=== PATIENT | female | born 1950 | race Caucasian/White ===

== ENCOUNTER → 2018-03-13 | Outpatient (CLI) | payer MEDICARE ==
--- NOTE | 2018-03-13 11:41 | XR ---
EXAMINATION TYPE: XR sinus DATE OF EXAM: 03/13/2018 CLINICAL HISTORY: Facial pain , headache. TECHNIQUE: Wayne, Castañeda, and lateral image of the skull are obtained. COMPARISON: None. FINDINGS: There is mucosal thickening involving the maxillary sinuses bilaterally. Mild mucosal thick ening involving the frontal sinus and ethmoid sinuses. No definite evidence of air-fluid level. Nasal septal deviation noted. Osseous structures intact. IMPRESSION: 1. Findings are compatible with the chronic sinusitis with most marked findings involving the maxilla ry sinuses.
--- NOTE | 2018-03-13 11:45 | XR ---
EXAMINATION TYPE: XR chest 2V DATE OF EXAM: 03/13/2018 COMPARISON: NONE TECHNIQUE: PA and lateral views submitted. HISTORY: Shortness of breath FINDINGS: The lungs are clear and there is no pneumothorax, pleural effusion, or focal pneumonia. Mild degene rative disc disease noted. IMPRESSION: 1. No acute process.
== END | disposition home or self-care (01) ==
LOC: RADXRMAIN 10:18
PROVIDERS: ATTEND Family Medicine
DX: J32.0 Chronic maxillary sinusitis (principal); R06.02 Shortness of breath
CPT/HCPCS: 70220; 71046

== ENCOUNTER → 2018-03-28 | Outpatient (CLI) | payer MEDICARE ==
--- NOTE | 2018-03-28 15:35 | CT ---
EXAMINATION TYPE: CT sinus wo con DATE OF EXAM: 03/28/2018 COMPARISON: None HISTORY: Chronic sinusitis CT DLP: 617 mGycm CONTRAST: 0 mL of Isovue 300 The paranasal sinuses are examined in the axial plane at 2 mm thick sections. Reconstructed images i n the coronal plane were obtained. There is dental amalgam scatter artifact The maxillary sinuses are clear. The ethmoid air cells are clear. The sphenoid sinuses are clear. The frontal sinuses are clear. The septum is evaluated. There is septal deviation to the left. The ostiomeatal units are patent. The suprasellar cistern appears somewhat prominent. There may be some enlargement of the sella. Recom mend pituitary MRI for additional evaluation. IMPRESSIONS: 1. Normal paranasal sinuses 2. Left septal deviation. 3. Prominent sella. Recommend pituitary MRI for evaluation.
== END | disposition home or self-care (01) ==
LOC: RADCTMAIN 09:14
PROVIDERS: ATTEND Otolaryngology
DX: J34.2 Deviated nasal septum (principal)
CPT/HCPCS: 70486

== ENCOUNTER → 2018-04-16 | Outpatient (CLI) | payer MEDICARE | LOC: LABWHC1 13:36 | PROVIDERS: ATTEND Otolaryngology | DX: Z01.818 Encounter for other preprocedural examination (principal); R94.8 Abnormal results of function studies of other organs and systems | CPT/HCPCS: 36415; 82565 ==

== ENCOUNTER → 2018-04-18 | Outpatient (CLI) | payer MEDICARE ==
--- NOTE | 2018-04-18 16:12 | MR ---
EXAMINATION TYPE: MR pituitary wo/w con DATE OF EXAM: 04/18/2018 1:52 PM COMPARISON: NONE HISTORY: abnormal CT scan CONTRAST: Patient received 6 mL intravenous Gadavist gadolinium contrast. Multiplanar MultiSpin echo imaging of the pituitary fossa was performed. Unenhanced followed by cont rast enhanced images are submitted. The unenhanced portion of the study fails to demonstrate evidence for hyperintense pituitary lesion. There is a partially empty sella noted with CSF content seen within the sella turcica. There is flat tening of the pituitary gland which measures 1.2 cm in length by 3 mm in craniocaudal dimension. Foll owing contrast administration there is no evidence for filling defect to suggest microadenoma. Pitui tary stalk is midline. Suprasellar cistern is unremarkable without evidence for mass. Optic chiasm has a normal appearance. Cavernous sinus including the carotid vessels appear to be within normal li mits. IMPRESSION: 1. No evidence for pituitary micro or macroadenoma. Partially empty sella noted.
== END | disposition home or self-care (01) ==
LOC: RADMRIMAIN 12:38
PROVIDERS: ATTEND Otolaryngology
DX: R93.8 Abnormal findings on diagnostic imaging of other specified body structures (principal)
CPT/HCPCS: 70553

== ENCOUNTER → 2019-02-05 | Outpatient (CLI) | payer MEDICARE ==
[2019-02-05 18:06] LABS: Gliadin AB IgA, Unit <0.2 U/mL
[2019-02-06 12:00] LABS: Anti-Endomysial IgA Antibody <1:10 Titer (<1:10)
== END | disposition home or self-care (01) ==
LOC: LABWHC1 09:19
PROVIDERS: ATTEND Family Medicine
DX: R42 Dizziness and giddiness (principal); R19.7 Diarrhea, unspecified
CPT/HCPCS: 36415; 83516; 86255

== ENCOUNTER → 2019-02-23 | Outpatient (CLI) | payer MEDICARE ==
[2019-02-23 10:10] LABS: African American GFR (CKD) >90 (>60 ml/min/1.73 sqM); Blood Urea Nitrogen 15 mg/dL (7-17); Non-African American GFR(CKD) >90 (>60 ml/min/1.73 sqM)
--- NOTE | 2019-02-23 11:08 | CT ---
EXAMINATION TYPE: CT brain wo/w con DATE OF EXAM: 02/23/2019 COMPARISON: None. HISTORY: Dizziness CT DLP: 2144.6 mGycm Automated exposure control for dose reduction was used. CONTRAST: CT scan of the head is performed without and with IV Contrast, patient injected with 100 mL of Isovue 300. FINDINGS: Noncontrast images show no acute parenchymal hemorrhage or midline shift. There is diffuse ventricular and sulcal prominence slightly more prominent over bilateral frontal lobes. Bedolla-white ma tter differentiation is fairly well-maintained. Postcontrast images show no suspicious enhancing mass es. Incidental note is made of hypoplastic right A1 segment with filling of A2 segment due to patent anterior communicate artery. Normal variant. The globes are intact and the visualized sinuses are jean pierre ar. IMPRESSION: Mild generalized cerebral atrophy most prominent over bilateral frontal lobes. No suspici ous enhancement is seen.
--- NOTE | 2019-02-23 11:17 | US ---
EXAMINATION TYPE: US carotid duplex BILAT DATE OF EXAM: 02/23/2019 COMPARISON: NONE CLINICAL HISTORY: H81.49 Vertigo. Dizziness, no hx TIA, HTN EXAM MEASUREMENTS: RIGHT: Peak Systolic Velocity (PSV) cm/sec ----- Right CCA: 62.5 ----- Right ICA: 71.2 ----- Right ECA: 68.6 ICA/CCA ratio: 1.1 RIGHT: End Diastole cm/sec ----- Right CCA: 12.7 ----- Right ICA: 20.6 ----- Right ECA: 8.4 LEFT: Peak Systolic Velocity (PSV) cm/sec ----- Left CCA: 61.6 ----- Left ICA: 76.5 ----- Left ECA: 70.4 ICA/CCA ratio: 1.2 LEFT: End Diastole cm/sec ----- Left CCA: 18.0 ----- Left ICA: 26.7 ----- Left ECA: 8.4 VERTEBRALS (direction of flow): Right Vertebral: Antegrade Left Vertebral: Antegrade Rhythm: Normal No elevated velocities or significant stenosis. Plaque seen in bilateral bulbs. No wall thickening seen. IMPRESSION: Mild degree of grayscale atheromatous plaquing with no sonographically evident hemodynam ically significant stenosis within either visualized carotid arterial system. Criteria for Assigning % of Stenosis / Diameter reduction (Estimation based on the indirect measurements of the internal carotid artery velocities (ICA PSV). 1. Normal (no stenosis)=ICA PSV < 125 cm/s: ratio < 2.0: ICA EDV<40 cm/s. 2. Less than 50% stenosis=ICA PSV < 125 cm/s: ratio < 2.0: ICA EDV<40 cm/s. 3. 50 to 69% stenosis=ICA PSV of 125 to 230 cm/s: ration 2.0 ? 4.0: ICA EDV 40-100 cm/s. 4. Greater than 70% stenosis to near occlusion= ICA PSV > 230 cm/s: ratio > 4.0: ICA EDV > 100 cm/s. 5. Near occlusion= ICA PSV velocities may be low or undetectable: variable ratio and ICA EDV. 6. Total occlusion=unable to detect flow.
--- NOTE | 2019-02-24 15:42 | EEG ---
ELECTROENCEPHALOGRAM REPORT DATE OF PROCEDURE: 02/23/2019. ELECTROENCEPHALOGRAM (EEG) REPORT: TECHNIQUE: A routine 18-channel EEG was performed with video using the 10/20 international electrode placement system. HISTORY: Dizzy spells. CURRENT MEDICATIONS: Unknown. STUDY DURATION: 25 minutes. FINDINGS: BACKGROUND: The background activity consisted of 8-9 Hz rhythmic waveforms symmetrically distributed over both posterior quadrants. ACTIVATION: Hyperventilation: Not performed. Photic stimulation: Symmetric driving seen. Sleep: Stages I and II sleep noted. ABNORMALITIES: None. Please note that one channel of this EEG was dedicated to EKG, it demonstrated a sinus rhythm. IMPRESSION: Normal EEG. No epileptiform activity was present. No seizures were recorded. MMODL / IJN: [id number] / MTDD
== END ==
LOC: NEUROMAIN 07:49
PROVIDERS: ATTEND Family Medicine
DX: I65.23 Occlusion and stenosis of bilateral carotid arteries (principal); G31.9 Degenerative disease of nervous system, unspecified
CPT/HCPCS: 95816; 82565; 84520; 93880; 70470; 36415; Q9967

== ENCOUNTER → 2019-03-02 | Outpatient (CLI) | payer MEDICARE ==
--- NOTE | 2019-03-03 10:06 | ECHOF ---
Referral Reason:H81.49 vertigo MEASUREMENTS -------- HEIGHT: 157.5 cm WEIGHT: 63.5 kg BP: RVIDd: 2.2 cm (< 3.3) IVSd: 1.1 cm (0.6 - 1.1) LVIDd: 2.9 cm (3.9 - 5.3) LVPWd: 1.2 cm (0.6 - 1.1) IVSs: 1.3 cm LVIDs: 1.8 cm LVPWs: 1.4 cm LAESV Index (A-L): 17.08 ml/m Ao Diam: 2.8 cm (2.0 - 3.7) AV Cusp: 1.6 cm (1.5 - 2.6) LA Diam: 3.3 cm (2.7 - 3.8) MV EXCURSION: 9.371 mm (> 18.000) MV EF SLOPE: 33 mm/s (70 - 150) EPSS: 0.4 cm MV E Jesse: 0.93 m/s MV DecT: 273 ms MV A Jesse: 1.26 m/s MV E/A Ratio: 0.74 RAP: 5.00 mmHg RVSP: 7.97 mmHg FINDINGS -------- Sinus rhythm. This was a technically adequate study. The left ventricular size is normal. Left ventricular wall thickness is normal. Overall left vent ricular systolic function is normal with, an EF between 55 - 60 %. The right ventricle is normal in size. The left atrial size is normal. Normal LA size by volume 22+/-6 ml/m2. The right atrial size is normal. Interatrial and interventricular septum intact. The aortic valve is trileaflet and appears structurally normal. The mitral valve is normal. There is trace mitral regurgitation. Trace tricuspid regurgitation present. Right ventricular systolic pressure is normal at < 35 mmHg. There is no pulmonic regurgitation present. The aortic root size is normal. There is no pericardial effusion. CONCLUSIONS -------- 1. Sinus rhythm. 2. This was a technically adequate study. 3. The left ventricular size is normal. 4. Left ventricular wall thickness is normal. 5. Overall left ventricular systolic function is normal with, an EF between 55 - 60 %. 6. The right ventricle is normal in size. 7. The left atrial size is normal. 8. Normal LA size by volume 22+/-6 ml/m2. 9. The right atrial size is normal. 10. Interatrial and interventricular septum intact. 11. The aortic valve is trileaflet and appears structurally normal. 12. The mitral valve is normal. 13. There is trace mitral regurgitation. 14. Trace tricuspid regurgitation present. 15. Right ventricular systolic pressure is normal at < 35 mmHg. 16. There is no pulmonic regurgitation present. 17. The aortic root size is normal. 18. There is no pericardial effusion. MARKETING INFORMATION MANAGER: Flores Perez RDCS
== END | disposition home or self-care (01) ==
LOC: RADECHMAIN 15:25
PROVIDERS: ATTEND Family Medicine
DX: H81.49 Vertigo of central origin, unspecified ear (principal)
CPT/HCPCS: 93306

== ENCOUNTER → 2020-12-28 | Outpatient (CLI) | payer MEDICARE ==
--- NOTE | 2020-12-28 20:32 | CONS ---
CONSULTATION DATE OF SERVICE: 12/28/2020 This 70-year-old lady has been evaluated in Sleep Center for significant sleep problems including multiple awakenings from sleep. HISTORY OF PRESENT ILLNESS/SLEEP-WAKE EVALUATION: SLEEP SCHEDULE: Patient's usual sleep schedule from 9 to 11 p.m. until 7-830 a.m. FALLING ASLEEP: Sometimes she has problems with falling asleep. Has a TV set in bedroom. DURING SLEEP: Sleeps on the side position. Wakes up from sleep several times. She is up to 3 episodes of nocturia. She may feel discomfort in the legs and she may move around, possibly restless legs symptoms. She does snore. DURING THE DAY/SLEEP WAKE EVALUATION: In the morning, during the day, she has problems with concentration and depression. [place] Sleepiness Scale is 8. Patient may take one nap afternoon if needed. Usually feels refreshed after naps. No history of vivid dreams during naps or during the sleep. No history of cataplexy or sleep paralysis. PAST MEDICAL HISTORY: Positive for hypertension, hyperlipidemia, glaucoma. PAST SURGICAL HISTORY: Tonsillectomy, cholecystectomy, surgery for right-sided rotator cuff problems, left knee arthroscopic surgery, surgery for floppy eyelid syndrome. MEDICATIONS: Losartan/hydrochlorothiazide 100/12.5 mg once a day. once a day, latanoprost eyedrops right eye, vitamin D3, B12. SOCIAL HISTORY: Negative for smoking or using alcohol. FAMILY HISTORY: Positive for heart problems, cancer, acid reflux. REVIEW OF SYSTEMS: Multiple awakenings from sleep. PHYSICAL EXAMINATION: GENERAL: A pleasant lady without distress. BP 133/73, HR 88, RR 15, height 5 feet 2.5 inches, weight 150 pounds. Body mass index 26.9, temperature 97.8. Oxygen saturation: 100%. Neck is 15-3/4 inches in circumference. HEENT: PERRLA, EOMI. Oropharynx wide pillars. Big uvula. NECK: Supple, no JVD. Thyroid is not palpable. LUNGS: Clear to percussion and to auscultation. Good air exchange. No wheezing or rhonchi. HEART: S1, S2 regular. No murmurs, gallops, or rubs. ABDOMEN: Soft and nontender. Bowel sounds are present. No organomegaly appreciated. EXTREMITIES: No clubbing or cyanosis. ZINC PLATE GRAINER: Awake, alert, and oriented X3. Cranial nerves 2 to 7 intact. There is no fasciculation or atrophy. noted. No focal deficits observed. IMPRESSION: 1. Snoring, multiple awakenings from sleep, episodes of sleepiness during the day, possible obstructive sleep apnea-hypopnea syndrome. 2. Restless leg symptoms during the night, possibly periodic limb movements. 3. Hypertension. 4. Hyperlipidemia. 5. History of glaucoma. 6. Status post tonsillectomy. 7. Status post cholecystectomy. 8. Status post right rotator cuff surgery. 9. Status post left knee arthroscopic surgery. 10.History of floppy eyelid syndrome, status post surgical treatment. PLAN: 1. Home sleep apnea test to check the patient's breathing during sleep. 2. Patient may need polysomnogram if the home sleep apnea test to be negative for evaluation of movements during the sleep, possibly patient has restless legs and periodic limb movements. 3. Watching weight. 4. CPAP/BiPAP titration if sleep study confirms obstructive sleep apnea-hypopnea syndrome. 5. Preferable position during sleep on the side. 6. No driving if patient feels any sleepiness. 7. I will see patient for follow up visit to explain results of testing and following plan. Thank you very much for referring this patient for consultation. Sincerely, Isma Locke MD, PhD, FAASM Diplomat of [employer] [employer] Staff Sonographer of [facility] [place] MMODL / YOLISN: [id number] /
== END ==
LOC: SLEEP 13:50
PROVIDERS: ATTEND Internal Medicine
DX: R40.0 Somnolence (principal); G25.81 Restless legs syndrome; I10 Essential (primary) hypertension; E78.5 Hyperlipidemia, unspecified; Z90.49 Acquired absence of other specified parts of digestive tract; Z90.09 Acquired absence of other part of head and neck; Z98.890 Other specified postprocedural states; Z86.69 Personal history of other diseases of the nervous system and sense organs; Z79.899 Other long term (current) drug therapy
CPT/HCPCS: 99211

== ENCOUNTER → 2021-03-29 | Outpatient (CLI) | payer MEDICARE ==
--- NOTE | 2021-03-29 19:07 | SFUN ---
SLEEP CENTER FOLLOW UP NOTE DATE OF SERVICE: 03/29/2021 70-year-old lady has been followed in Sleep Center for treatment of obstructive sleep apnea-hypopnea syndrome. Recently the patient had home sleep test which showed that she has severe sleep apnea and then she was started on treatment with auto PAP. Today is her first visit on CPAP therapy. She is able to use equipment every night. She is using full-face mask because she has problems with breathing through the nose. [place] Sleepiness Scale today is 4 which is less than during the first visit when it was 8. I checked CPAP unit. Range of the pressure 5-15, average pressure 14.7, usage is 29/30 nights and 25/30 nights for more than 4 hours, average 7.6 hours per night which is good compliance. Leak is only 1 L/minutes which is perfect. Apnea-hypopnea index is 5.3. MEDICATIONS: Losartan hydrochlorothiazide 100/12.5 mg once a day, latanoprost eyedrops right eye. PHYSICAL EXAMINATION: GENERAL: Patient in no distress. BP 123/68, HR 78, RR 15, weight 153 pounds, temperature 97.7, oxygen saturation at room air 100% with O2. HEENT: PERRLA, EOMI, evaluation of oropharynx showed tongue protrudes midline. NECK: Supple, no JVD. Thyroid is not palpable. Neck 15-3/4 inches in circumference. LUNGS: Clear to percussion and to auscultation. Good air exchange. No wheezing or rhonchi. HEART: S1, S2 regular. No murmurs, gallops, or rubs. ABDOMEN: Soft and nontender. Bowel sounds are present. No organomegaly appreciated. EXTREMITIES: No clubbing or cyanosis. NON PROFIT JOB TITLES: Awake, alert, and oriented X3. Cranial nerves 2 to 7 intact. There is no fasciculation or atrophy. noted. No focal deficits observed. IMPRESSION: 1. Severe obstructive sleep apnea-hypopnea syndrome by results of home sleep apnea test. Apnea-hypopnea index 30.5 with oxygen desaturation to 77%. Respiration practically normalized on treatment with AutoPAP. Apnea-hypopnea index 5.3, benefitting from treatment. Presently pressure 5-15. It was decreased because the patient feel discomfort related to the pressure. 2. Hypertension. 3. Possibly periodic limb movements. No complaints at the present time. 4. Hyperlipidemia. 5. History of glaucoma. 6. Status post tonsillectomy. 7. Status post cholecystectomy. 8. Status post right rotator cuff surgery. 9. Status post left knee arthroscopic surgery. 10.History of floppy eyelid syndrome status post surgical treatment. PLAN: 1. Patient will continue to use PAP equipment every night for the whole night. 2. Sleep hygiene with regular time in bed for at least 7-1/2 to 8 hours. 3. Precautions related to driving. No driving if feeling sleepiness. 4. I will maintain all necessary prescription for PAP supplies including mask, tube, filters. 5. Watching weight. 6. Follow-up visit in 6 months or earlier if patient has any problems. Thank you very much for allowing me to participate in management of your patient. Sincerely, Isma Locke MD, PhD, FAASM Diplomat of [employer] Sleep Medicine Board of [employer] Strickler Attendant of [facility] [place] MMODL / YOLISN: [id number] /
== END ==
LOC: SLEEP 13:41
PROVIDERS: ATTEND Internal Medicine
DX: G47.33 Obstructive sleep apnea (adult) (pediatric) (principal); G47.36 Sleep related hypoventilation in conditions classified elsewhere; Z99.89 Dependence on other enabling machines and devices; I10 Essential (primary) hypertension; E78.5 Hyperlipidemia, unspecified; Z90.09 Acquired absence of other part of head and neck; Z90.49 Acquired absence of other specified parts of digestive tract; Z98.890 Other specified postprocedural states; Z86.69 Personal history of other diseases of the nervous system and sense organs; Z79.899 Other long term (current) drug therapy

== ENCOUNTER → 2021-09-27 | Outpatient (CLI) | payer MEDICARE ==
--- NOTE | 2021-09-27 19:35 | SFUN ---
SLEEP CENTER FOLLOW UP NOTE DATE OF SERVICE: 09/27/2021 71-year-old lady for has been followed in Sleep Center for treatment of obstructive sleep apnea-hypopnea syndrome. The patient continued to use her CPAP equipment every night for the whole night getting her CPAP supplies in time. [place] Sleepiness Scale today is 6, which is normal. I checked her CPAP unit. Range of the pressure 5-15, average pressure 14.4, usage 29/30 nights and /30 nights more than 4 hours, average 7.5 hours per night. Leak is 4 L/minute which is totally normal. Apnea-hypopnea index is 2.4 which is normal. MEDICATIONS: Rosuvastatin 10 mg once a day, losartan hydrochlorothiazide 100/12.5 mg once a day, trazodone 100 mg once a day, Pioglitazone 50 mg once a day, sertraline 50 mg once a day, doxycycline 50 mg once a day for , a B12 supplement and D3 supplement. PHYSICAL EXAMINATION: GENERAL: Patient in no distress. BP to 127/70, HR 75, RR 16, weight 158.2, temp 96.9, oxygen saturation at room air 100%. HEENT: PERRLA, EOMI, evaluation of oropharynx showed tongue protrudes midline. NECK: Supple, no JVD. Thyroid is not palpable. LUNGS: Clear to percussion and to auscultation. Good air exchange. No wheezing or rhonchi. HEART: S1, S2 regular. No murmurs, gallops, or rubs. ABDOMEN: Soft and nontender. Bowel sounds are present. No organomegaly appreciated. EXTREMITIES: No clubbing or cyanosis. AUTOMOTIVE ASSEMBLER: Awake, alert, and oriented X3. Cranial nerves 2 to 7 intact. There is no fasciculation or atrophy. noted. No focal deficits observed. IMPRESSION: 1. Severe obstructive sleep apnea-hypopnea syndrome by results of home sleep apnea test. Apnea-hypopnea index 30.5 with oxygen desaturation to 77%. The patient demonstrated great compliance with treatment. Normal respiration on CPAP, benefitting from treatment. 2. Hypertension. 3. No complaints on possible periodic limb movements at the present time. 4. Hyperlipidemia. 5. History of glaucoma. 6. Status post tonsillectomy. 7. Status post cholecystectomy. 8. Status post right rotator cuff surgery. 9. Status post left knee arthroscopic surgery. 10.History of floppy eyelid syndrome, treated surgically. PLAN: 1. Patient will continue to use PAP equipment every night for the whole night. 2. Sleep hygiene with regular time in bed for at least 7-1/2 to 8 hours. 3. Precautions related to driving. No driving if feeling sleepiness. 4. I will maintain all necessary prescription for PAP supplies including mask, tube, filters. 5. Watching weight. 6. Follow-up visit in 6 months or earlier if patient has any problems. Thank you very much for allowing me to participate in the management of your patient. Sincerely, Isma Locke MD, PhD, FAASM Diplomat of [employer] Sleep Medicine Board of [employer] of Internal Medicine Supervisor [employer] of [facility] [place] MMODL / YOLISN: [id number] /
== END ==
LOC: SLEEP 13:30
PROVIDERS: ATTEND Internal Medicine
DX: G47.33 Obstructive sleep apnea (adult) (pediatric) (principal); I10 Essential (primary) hypertension; E78.5 Hyperlipidemia, unspecified; Z90.09 Acquired absence of other part of head and neck; Z99.89 Dependence on other enabling machines and devices; Z90.49 Acquired absence of other specified parts of digestive tract; Z98.890 Other specified postprocedural states; Z86.69 Personal history of other diseases of the nervous system and sense organs

== ENCOUNTER → 2022-05-16 | Outpatient (CLI) | payer MEDICARE ==
--- NOTE | 2022-05-16 13:47 | P.PN ---
Subjective DATE: 05/16/2022 FOLLOW UP VISIT. Patient with obstructive sleep apnea hypopnea syndrome return to sleep center for follow-up visit. Information from previous visit have been reviewed. Patient is using PAP equipment every night for the whole night, getting PAP supplies in time. The patient does not have significant problems with the mask, PAP unit and humidification. [place] sleepiness scale is 5, which is normal. I checked information from PAP unit. PAP unit pressure 5-15, average 14.4 cm H2O. Usage is 98 % for more then 4 hours, average 8.0 hours per night. Leak is 1 l/m, which is in perfect range. Apnea Hypopnea Index is 2.1, which is normal. MEDICATIONS:1. Losartanhydrochlorothiazide 31931.5 mg once a day 2. Atorvastatin 20 mg once a day 3. Trazodone 50 mg once a day 4. Aspirin 81 mg once a day 5. Latanoprost eyedrops 6. Pioglitazone 15 mg once a day During physical exam: GENERAL: A pleasant patient without any distress. VITAL SIGNS: BP 153/76, HR 82, RR 16 , weight 152, height 5 foot 2-1/2 inches, body mass index 27.1, temperature 98.0, oxygen saturation at room air 98 % . HEENT: PERRLA, EOMI. NECK: Supple. No JVD. LUNGS: Clear to percussion and to auscultation. Good air exchange. No wheezing or rhonchi. HEART: S1, S2 regular. ABDOMEN: Soft and nontender.[] EXTREMITIES: No clubbing or cyanosis. TOBACCO HANGER: Awake, alert, and oriented x3. No focal deficit. Impressions: 1. Obstructive sleep apnea-hypopnea syndrome. Patient demonstrated great compliance with treatment, benefiting from treatment. 2. Hypertension. 3. History of periodic limb movements, no complaints at the present time. 4. Hyperlipidemia. 5. History of glaucoma. 6. Status post tonsillectomy. 7. Status post cholecystectomy. 8. Status post rotator cuff surgery. 9. Status post left knee arthroscopic surgery. 10. History of floppy eyelid syndrome, status post surgical treatment. 11.[]. 12.[]. Plan: 1. Continue using PAP equipment every night for the whole night. 2. To change air filter at least 1-2 times per month. 3. PAP unit should stay lower then position of the head. 4. Advised patient to remove all remaining water from humidifier canister daily and make it dry after each usage. Refill canister with fresh distilled water before each usage. 5. Sleep hygiene with regular time in bed for at least 8 hours. 6. Precautions related to driving. No driving if feel any sleepiness. 7. I will maintain prescription for PAP supplies including mask, tube, filters. 8. Follow up visit in 6 months or earlier if patient has any problems. 9. Watching weight. Thank you very much for allowing me to participate in the management of your patient. Isma Locke MD, PhD, FAASM. Diplomat of [employer] [employer], Sleep Medicine Board by [employer] [employer] Sharepoint Analyst of [facility] [place]
== END | disposition home or self-care (01) ==
LOC: SLEEP 13:00
PROVIDERS: ATTEND Internal Medicine
DX: G47.33 Obstructive sleep apnea (adult) (pediatric) (principal); I10 Essential (primary) hypertension; E78.5 Hyperlipidemia, unspecified; Z90.49 Acquired absence of other specified parts of digestive tract
CPT/HCPCS: 99212

== ENCOUNTER → 2022-11-14 | Outpatient (CLI) | payer MEDICARE ==
--- NOTE | 2022-11-14 14:01 | P.PN ---
Subjective DATE: 11/14/2022 FOLLOW UP VISIT. Patient with obstructive sleep apnea hypopnea syndrome return to sleep center for follow-up visit. Information from previous visit have been reviewed. Patient is using PAP equipment every night for the whole night, getting PAP supplies in time. The patient does not have significant problems with the mask, PAP unit and humidification. Center sleepiness scale is 4, which is normal. I checked information from PAP unit. PAP unit pressure 5-15, average 12 cm H2O. Usage is 95 % for more then 4 hours, average 7.8 hours per night. Leak is 13 l/m, which is in acceptable range. Apnea Hypopnea Index is 6.6, which is slightly increased, during previous visit it was 2.1. MEDICATIONS:1. Losartan/hydrochlorothiazide 100-12.5 mg once a day 2. Atorvastatin 20 mg once a day 3. Pioglitazone 15 mg once a day 4. Alendronate 70 mg once a week During physical exam: GENERAL: A pleasant patient without any distress. VITAL SIGNS: BP 147/70, HR 98, RR 12 , weight 153.4, temperature 98.2, oxygen saturation at room air 99 % . HEENT: PERRLA, EOMI.low position of soft palate, Mallapati 3 . NECK: Supple. No JVD. LUNGS: Clear to percussion and to auscultation. Good air exchange. No wheezing or rhonchi. HEART: S1, S2 regular. ABDOMEN: Soft and nontender.[] EXTREMITIES: No clubbing or cyanosis. TRAIN ANNOUNCER: Awake, alert, and oriented x3. No focal deficit. Impressions: 1. Obstructive sleep apnea-hypopnea syndrome. Patient demonstrated great compliance with treatment, benefiting from treatment. 2. Hypertension. 3. Hyperlipidemia. 4. History of periodic limb movements, no complaints. 5. History of glaucoma. 6. History of floppy eyelid syndrome, status post surgical treatment. 7. Status post tonsillectomy. 8. Status post left knee arthroscopic surgery. I changed pressure in AutoPAP unit to the range of 5-16 cm of water Plan: 1. Continue using PAP equipment every night for the whole night. 2. To change air filter at least 1-2 times per month. 3. PAP unit should stay lower then position of the head. 4. Advised patient to remove all remaining water from humidifier canister daily and make it dry after each usage. Refill canister with fresh distilled water before each usage. 5. Sleep hygiene with regular time in bed for at least 8 hours. 6. Precautions related to driving. No driving if feel any sleepiness. 7. I will maintain prescription for PAP supplies including mask, tube, filters. 8. Watching and losing weight. 9. Follow up visit in 6 months or earlier if patient has any problems. Thank you very much for allowing me to participate in the management of your patient. Isma Locke MD, PhD, FAASM. Diplomat of [employer], Sleep Medicine Board by [employer] Running Instructor of [facility] [employer]
== END ==
LOC: SLEEP 13:38
PROVIDERS: ATTEND Internal Medicine
DX: G47.33 Obstructive sleep apnea (adult) (pediatric) (principal); E78.5 Hyperlipidemia, unspecified; I10 Essential (primary) hypertension; R63.4 Abnormal weight loss; Z79.84 Long term (current) use of oral hypoglycemic drugs; Z79.899 Other long term (current) drug therapy; Z98.890 Other specified postprocedural states; Z99.89 Dependence on other enabling machines and devices
CPT/HCPCS: 99212

== ENCOUNTER 2024-03-20 10:51 | Day surgery (SDC) | payer MEDICARE ==
[2024-03-18 10:16] VITALS: BMI 25.7
[2024-03-20 11:36] LABS: Glucose,Whole Blood 98 mg/dL (70-110)
[2024-03-20 11:37] VITALS: TEMP 98.8
[2024-03-20] MEDS: IV FLUID CONTINUATION 1,000 ML IV ONE (11:38)
[2024-03-20] MEDS: LACTATED RINGERS 1,000 ML IV SCH (11:39)
[2024-03-20] MEDS ORDERED: PROPOFOL 10 MG/ML 20 ML VIAL IV ONE (12:26)
--- NOTE | 2024-03-20 12:51 | P.PCN ---
Date of Procedure: 03/20/24 Procedure(s) Performed: BRIEF HISTORY: Patient is a 73-year-old pleasant white female scheduled for an elective colonoscopy as a part of screening for colon cancer. PROCEDURE PERFORMED: Colonoscopy. PREOPERATIVE DIAGNOSIS: Screening for colon cancer IV sedation per Anesthesia. PROCEDURE: After informed consent was obtained, the patient, was brought into the endoscopy unit. IV sedation was administered by Anesthesia under continuous monitoring. Digital rectal examination was normal. Initially the Olympus CF-160 flexible video colonoscope was then inserted in the rectum, gradually advanced into the cecum without any difficulty. Careful examination was performed as the scope was gradually being withdrawn. Ileocecal valve and the appendiceal orifice were visualized and appeared normal. Prep was excellent. Mucosa of the cecum, ascending colon, transverse colon, descending colon, sigmoid colon, and rectum appeared normal. Retroflexion was performed in the rectum and no lesions were seen. The patient tolerated the procedure well. IMPRESSION: Normal-appearing colon from rectum to cecum with no evidence of colorectal neoplasia. RECOMMENDATIONS: Findings of this examination were discussed with the patient as well as her family. She was advised to have repeat screening colonoscopy in 10 years.
[2024-03-20 12:56] VITALS: RESP 16
[2024-03-20 13:10] VITALS: BP 136/79; PULSE 65
== END 2024-03-20 13:55 | disposition home or self-care (01) ==
LOC: ORWHC2ENDO 10:51
PROVIDERS: ATTEND Internal Medicine Gastroenterology
DX: Z12.11 Encounter for screening for malignant neoplasm of colon